=== PATIENT | male | born 1965 | race Caucasian/White ===

== ENCOUNTER 2024-08-04 14:52 | Observation (INO) | payer BC, OTHER ==
[2024-08-04 15:13] VITALS: BMI 26.1
[2024-08-04] MEDS: SODIUM CHLORIDE 0.9% 1000 ML INFUS.BAG IV STA (15:51)
[2024-08-04] MEDS ORDERED: KETOROLAC TROMETHAMINE 15 MG/ML VIAL ONE (15:55)
[2024-08-04] MEDS ORDERED: ACETAMINOPHEN INJECTION 100 ML ONE (15:55)
[2024-08-04] MEDS: ACETAMINOPHEN 1000 MG/100 ML BAG IVPB ONE (15:57)
[2024-08-04] MEDS: KETOROLAC TROMETHAMINE 15 MG/ML VIAL IVPUSH ONE (15:57)
[2024-08-04 16:13] LABS: HEMATOCRIT 33.3 % (35.4-49); HEMOGLOBIN 10.8 GM/dL (11.7-16.9); MCHC 32.5 g/dl (32.0-35.9); MEAN CELL VOLUME 60.8 fl (80-96); MEAN PLT VOLUME 8.2 fl (7.5-11.1); PLATELET COUNT 275 10^3/uL (134-434); RBC 5.49 M/mm3 (4.00-5.60); RDW 16.9 % (11.9-15.9); WHITE BLOOD COUNT 8.7 K/mm3 (4.0-10.0)
[2024-08-04 16:14] LABS: VENOUS BASE EXCESS 1.4 mmol/L (-2-2); VENOUS O2 SATURATION 57.7 % (70-80); VENOUS PCO2 35.7 mmHg (38-52); VENOUS PH 7.461 (7.310-7.410)
[2024-08-04 16:15] LABS: PH,URINE 7.5 (5.0-8.0); URINE APPEARANCE CLEAR; URINE BILIRUBIN NEGATIVE (NEGATIVE); URINE COLOR YELLOW; URINE GLUCOSE (UA) NEGATIVE (NEGATIVE); URINE KETONE TRACE (NEGATIVE); URINE LEUK ESTERASE NEGATIVE (NEGATIVE); URINE NITRITE NEGATIVE (NEGATIVE); URINE PROTEIN TRACE (NEGATIVE)
[2024-08-04 16:23] LABS: INR 1.18 (0.83-1.09); PROTHROMBIN TIME (PATIENT) 13.5 SEC (9.7-13.0)
[2024-08-04 16:25] LABS: MCH 19.8 pg (25.7-33.7)
[2024-08-04 16:26] LABS: ACTIVATED PTT 30.5 SECONDS (25.2-36.5)
[2024-08-04 16:28] LABS: POTASSIUM 3.8 mmol/L (3.5-5.1)
[2024-08-04 16:30] LABS: CALCIUM 9.2 mg/dL (8.5-10.1)
[2024-08-04 16:31] LABS: ALBUMIN 3.6 g/dl (3.4-5.0); BLOOD UREA NITROGEN 15.6 mg/dL (7-18)
[2024-08-04 16:37] LABS: BILIRUBIN,TOTAL 0.7 mg/dL (0.2-1); TOT PROT 6.6 g/dl (6.4-8.2)
[2024-08-04] MEDS ORDERED: AZITHROMYCIN IVPB 250 MG/125 ML BAG IVPB ONE (16:41)
[2024-08-04] MEDS ORDERED: CEFTRIAXONE 1 G/50 ML PREMIX 50 ML IVPB ONE (16:54)
[2024-08-04 16:56] LABS: ANISOCYTOSIS 2+; MACROCYTOSIS 0; OVALOCYTE 1+; TARGET CELLS 1+; TEAR DROP CELLS 1+
[2024-08-04] MEDS: CEFTRIAXONE 1,000 MG in DEXTROSE 5%-WATER - 50 ML IVPB ONE (17:03)
[2024-08-04] MEDS: AZITHROMYCIN IVPB 250 MG in DEXTROSE 5%-WATER - 250 ML IVPB ONE ×3 (17:04→17:56)
[2024-08-04] MEDS: AZITHROMYCIN 250 MG TABLET PO ONE (17:56)
[2024-08-04] MEDS ORDERED: ALBUTEROL SO4 0.083% IH SOL 2.5 MG/3 ML VIAL.NEB. NEB PRN (20:12)
[2024-08-04] MEDS: ACETAMINOPHEN 325 MG TABLET (FP) PO PRN (20:53)
[2024-08-04] MEDS ORDERED: DOXYCYCLINE INJECTION 100 MG in DEXTROSE 5%-WATER 100 ML IVPB SCH (22:00)
[2024-08-04] MEDS: BUDESONIDE/FORMETEROL FUMARATE 160/4.5 mcg INHALER IH SCH (22:21)
[2024-08-04] MEDS: SODIUM CHLORIDE 1,000 ML IV SCH (23:57)
[2024-08-05] MEDS: DOXYCYCLINE INJECTION 100 MG in DEXTROSE 5%-WATER 100 ML IVPB SCH (05:49)
[2024-08-05 08:56] LABS: POTASSIUM 3.6 mmol/L (3.5-5.1)
[2024-08-05 08:57] LABS: BASO % 0.6 % (0-2.0); EOS % 2.7 % (0-4.5); HEMATOCRIT 28.4 % (35.4-49); HEMOGLOBIN 9.1 GM/dL (11.7-16.9); LYMPH % 5.8 % (8-40); MCHC 32.1 g/dl (32.0-35.9); MEAN CELL VOLUME 61.2 fl (80-96); MEAN PLT VOLUME 8.2 fl (7.5-11.1); MONO % 11.5 % (3.8-10.2); NEUT % 79.4 % (42.8-82.8); PLATELET COUNT 222 10^3/uL (134-434); RBC 4.64 M/mm3 (4.00-5.60); RDW 17.4 % (11.9-15.9); WHITE BLOOD COUNT 7.3 K/mm3 (4.0-10.0)
[2024-08-05 08:59] LABS: MCH 19.7 pg (25.7-33.7)
[2024-08-05 09:07] LABS: CALCIUM 8.5 mg/dL (8.5-10.1)
[2024-08-05 09:08] LABS: BILIRUBIN,TOTAL 0.7 mg/dL (0.2-1); BLOOD UREA NITROGEN 10.8 mg/dL (7-18); MAGNESIUM 1.9 mg/dL (1.8-2.4); TOT PROT 5.6 g/dl (6.4-8.2)
[2024-08-05 09:10] LABS: ALBUMIN 2.9 g/dl (3.4-5.0)
[2024-08-05 09:11] LABS: CREATININE 0.9 mg/dL (0.55-1.3); PHOSPHOROUS 2.3 mg/dL (2.5-4.9)
[2024-08-05] MEDS ORDERED: BUDESONIDE/FORMETEROL FUMARATE 160/4.5 mcg INHALER IH SCH (10:00)
[2024-08-05] MEDS: ENOXAPARIN NA (PORCINE) 40 MG/0.4 ML DISP.SYRIN SQ SCH (10:16)
[2024-08-05] MEDS: FOLIC ACID 1 MG TABLET (FP) PO SCH (10:16)
[2024-08-05] MEDS: CEFTRIAXONE 1 G/50 ML PREMIX 50 ML IVPB SCH (15:47)
[2024-08-05] MEDS: PIPERACILLIN/TAZOB 3.375 GM 50 ML IVPB SCH (20:14)
[2024-08-06 10:15] LABS: HEMATOCRIT 31.1 % (35.4-49); MCHC 32.1 g/dl (32.0-35.9); MEAN CELL VOLUME 61.5 fl (80-96); MEAN PLT VOLUME 8.1 fl (7.5-11.1); PLATELET COUNT 279 10^3/uL (134-434); RBC 5.06 M/mm3 (4.00-5.60); RDW 17.6 % (11.9-15.9); WHITE BLOOD COUNT 8.2 K/mm3 (4.0-10.0)
[2024-08-06 10:20] LABS: MCH 19.7 pg (25.7-33.7)
[2024-08-06 10:25] LABS: POTASSIUM 4.1 mmol/L (3.5-5.1)
[2024-08-06 10:29] LABS: ALBUMIN 3.2 g/dl (3.4-5.0); BLOOD UREA NITROGEN 12.1 mg/dL (7-18); CALCIUM 9.2 mg/dL (8.5-10.1)
[2024-08-06 10:34] LABS: BILIRUBIN,TOTAL 0.6 mg/dL (0.2-1)
[2024-08-06 10:41] LABS: TOT PROT 6.4 g/dl (6.4-8.2)
[2024-08-06 11:20] LABS: ANISOCYTOSIS 0; HELMET CELLS 0; HOWELL-JOLLY BODIES 0; MACROCYTOSIS 0; OVALOCYTE 0; ROULEAU 0; SICKELED CELLS 0; TARGET CELLS 0; TEAR DROP CELLS 0; TOXIC GRANULATION 0
[2024-08-07] MEDS: methylPREDNISolone NA SUCC 40 MG/1 ML VIAL IVPUSH SCH (11:29)
[2024-08-08 10:36] LABS: ALBUMIN 3.3 g/dl (3.4-5.0)
[2024-08-08] MEDS: DOXYCYCLINE HYCLATE 100 MG CAPSULE PO SCH (10:39)
[2024-08-08 10:40] LABS: BILIRUBIN,DIRECT 0.1 mg/dL (0.0-0.2)
[2024-08-08 10:41] LABS: BILIRUBIN,TOTAL 1.2 mg/dL (0.2-1); TOT PROT 6.5 g/dl (6.4-8.2)
[2024-08-08 12:36] VITALS: BP 130/75; PULSE 76; RESP 18; TEMP 97.7
== END 2024-08-08 14:00 | disposition home or self-care (01) ==
LOC: JER 14:52 → JERBED 17:49 → J5S 18:59
PROVIDERS: ADMIT Internal Medicine; ATTEND Internal Medicine
PROC: 3E033NZ Introduction of Analgesics, Hypnotics, Sedatives into Peripheral Vein, Percutaneous Approach (ICD-10-PCS; principal; 2024-08-04)
PROC: 3E03329 Introduction of Other Anti-infective into Peripheral Vein, Percutaneous Approach (ICD-10-PCS; 2024-08-04)
PROC: 3E023GC Introduction of Other Therapeutic Substance into Muscle, Percutaneous Approach (ICD-10-PCS; 2024-08-04)
DX: A41.9 Sepsis, unspecified organism (principal); J18.8 Other pneumonia, unspecified organism; D86.9 Sarcoidosis, unspecified; J45.909 Unspecified asthma, uncomplicated; I50.30 Unspecified diastolic (congestive) heart failure; R06.02 Shortness of breath
CPT/HCPCS: 0241U-QW; 36415; 71045-TC-FY; 71250-TC; 80053; 80061; 80076; 81003; 81257; 82728; 82803; 82962; 83036; 83540; 83550; 83605; 83735; 83880; 84100; 84443; 84466; 84484; 85025; 85045; 85610; 85730; 86850; 86900; 86901; 87040; 87070; 87081; 87086; 87205; 87899; 93005; 93010; 94010; 99285-25; G0378; J0131